=== PATIENT | male | born 1990 | race Caucasian/White ===

== ENCOUNTER 2019-01-23 16:52 | Emergency (ER) | payer OTHER, SELFPAY ==
--- NOTE | 2019-01-23 17:13 | EDPHYS ---
Physician Documentation [facility] Name: Humaira Johnson Age: 28 yrs Sex: Male : 1990 Arrival Date: 01/23/2019 Time: 16:55 Bed 19 Private MD: ED Physician Jakob Inman HPI: 01/23 17:10 This 28 yrs old Male presents to ER via Ambulatory with complaints of Facial kb Swelling. 17:11 The patient presents with pain, redness, swelling. The problem is located in the upper kb right first molar (#3) and upper right second molar (#2). Onset: The symptoms/episode began/occurred yesterday. Duration: The symptoms are continuous. Modifying factors: The symptoms are alleviated by nothing, the symptoms are aggravated by nothing. Associated signs and symptoms: Pertinent positives: pain, redness in area, swelling, facial. Severity of symptoms: At their worst the symptoms were moderate, in the emergency department the symptoms are unchanged. The patient has not experienced similar symptoms in the past. The patient has not recently seen a physician. Historical: - Allergies: 17:00 No Known Allergies; la1 - PMHx: 17:00 None; la1 - Immunization history:: Adult Immunizations up to date. - Social history:: Smoking status: Patient/guardian denies using tobacco. - Ebola Screening: : No symptoms or risks identified at this time. ROS: 17:09 Constitutional: Negative for fever, chills, and weight loss, Neck: Negative for injury, kb pain, and swelling, Cardiovascular: Negative for chest pain, palpitations, and edema, Respiratory: Negative for shortness of breath, cough, wheezing, and pleuritic chest pain, Abdomen/GI: Negative for abdominal pain, nausea, vomiting, diarrhea, and constipation, Back: Negative for injury and pain, MS/Extremity: Negative for injury and deformity, Skin: Negative for injury, rash, and discoloration, Neuro: Negative for headache, weakness, numbness, tingling, and seizure. 17:09 ENT: Positive for dental pain. Exam: 17:09 Constitutional: This is a well developed, well nourished patient who is awake, alert, kb and in no acute distress. Head/Face: Normocephalic, atraumatic. Neck: Trachea midline, no thyromegaly or masses palpated, and no cervical lymphadenopathy. Supple, full range of motion without nuchal rigidity, or vertebral point tenderness. No Meningismus. Chest/axilla: Normal chest wall appearance and motion. Nontender with no deformity. No lesions are appreciated. Cardiovascular: Regular rate and rhythm with a normal S1 and S2. No gallops, murmurs, or rubs. Normal PMI, no JVD. No pulse deficits. Respiratory: Lungs have equal breath sounds bilaterally, clear to auscultation and percussion. No rales, rhonchi or wheezes noted. No increased work of breathing, no retractions or nasal flaring. Abdomen/GI: Soft, non-tender, with normal bowel sounds. No distension or tympany. No guarding or rebound. No evidence of tenderness throughout. Skin: Warm, dry with normal turgor. Normal color with no rashes, no lesions, and no evidence of cellulitis. MS/ Extremity: Pulses equal, no cyanosis. Neurovascular intact. Full, normal range of motion. Neuro: Awake and alert, GCS 15, oriented to person, place, time, and situation. Cranial nerves II-XII grossly intact. Motor strength 5/5 in all extremities. Sensory grossly intact. Cerebellar exam normal. Normal gait. 17:09 ENT: Dental exam: gum swelling, that is moderate, specifically in the upper right second molar (#2) and upper right first molar (#3), pain. Vital Signs: 17:00 BP 118 / 94; Pulse 74; Resp 18; Temp 98.4; Pulse Ox 100% on R/A; Weight 83.91 kg; la1 Height 6 ft. 0 in. (182.88 cm); 17:00 Body Mass Index 25.09 (83.91 kg, 182.88 cm) la1 MDM: 17:02 Patient medically screened. kb 17:10 Data reviewed: vital signs, nurses notes. Data interpreted: Pulse oximetry: on room air kb is 100 %. Interpretation: normal. Counseling: I had a detailed discussion with the patient and/or guardian regarding: the historical points, exam findings, and any diagnostic results supporting the discharge/admit diagnosis, the need for outpatient follow up, a dentist, to return to the emergency department if symptoms worsen or persist or if there are any questions or concerns that arise at home. 17:13 ED course: Pt reports he was seen at the [facility] by a dentist and was told he kb needed a tooth pulled, but he didn't have the money to have it done. Given information about dental schools that may be able to help him.. Administered Medications: 17:29 Drug: Clindamycin 300 mg Route: PO; em 17:32 Follow up: Response: Medication administered at discharge. em Disposition: 01/24 12:59 Co-signature as Attending Physician, Jakob Inman MD I agree with the assessment and kdr plan of care. Disposition: 01/23/19 17:12 Discharged to Home. Impression: Periapical abscess without sinus. - Condition is Stable. - Discharge Instructions: Dental Pain, [id number], Dental Abscess, [id number]. - Prescriptions for Clindamycin HCl 300 mg Oral Capsule - take 1 capsule by ORAL route every 6 hours for 10 days; 40 capsule. - Medication Reconciliation Form, Thank You Letter, Antibiotic Education, Prescription Opioid Use form. - Follow up: Emergency Department; When: As needed; Reason: Worsening of condition. Follow up: Private Physician; When: 2 - 3 days; Reason: Recheck today's complaints, Continuance of care, Re-evaluation by your physician. Signatures: Stephanie Salgado, CHANGER FIXER-C CHANGER FIXER-Ckb Jakob Inman MD MD [facility] Aj Hall, HAT LACER HAT LACER Elpidio Jaramillo RN RN la1 Corrections: (The following items were deleted from the chart) 01/23 17:10 17:09 ENT: Dental exam: gum swelling, pain, kb kb 17:32 17:12 01/23/2019 17:12 Discharged to Home. Impression: Periapical abscess without em sinus. Condition is Stable. Forms are Medication Reconciliation Form, Thank You Letter, Antibiotic Education, Prescription Opioid Use. Follow up: Emergency Department; When: As needed; Reason: Worsening of condition. Follow up: Private Physician; When: 2 - 3 days; Reason: Recheck today's complaints, Continuance of care, Re-evaluation by your physician. kb
--- NOTE | 2019-01-23 17:13 | ER ---
Nurse's Notes [facility] Name: Humaira Johnson Age: 28 yrs Sex: Male : 1990 Arrival Date: 01/23/2019 Time: 16:55 Bed 19 Private MD: Diagnosis: Periapical abscess without sinus Presentation: 01/23 17:00 Presenting complaint: Patient states: I have had dental problems in the past and am la1 having facial swelling on the upper right. Transition of care: patient was not received from another setting of care. Onset of symptoms was January 23, 2019. Risk Assessment: Do you want to hurt yourself or someone else? Patient reports no desire to harm self or others. Initial Sepsis Screen: Does the patient meet any 2 criteria? No. Patient's initial sepsis screen is negative. Does the patient have a suspected source of infection? No. Patient's initial sepsis screen is negative. Care prior to arrival: None. 17:00 Method Of Arrival: Ambulatory la1 17:00 Acuity: [place] 4 la1 Historical: - Allergies: 17:00 No Known Allergies; la1 - PMHx: 17:00 None; la1 - Immunization history:: Adult Immunizations up to date. - Social history:: Smoking status: Patient/guardian denies using tobacco. - Ebola Screening: : No symptoms or risks identified at this time. Screenin:30 Abuse screen: Denies threats or abuse. Nutritional screening: No deficits noted. em Tuberculosis screening: No symptoms or risk factors identified. Fall Risk None identified. Assessment: 17:31 General: Appears in no apparent distress. comfortable, Behavior is calm, cooperative, em Denies fever. Pain: Complains of pain in upper right first molar (#3) and upper right second molar (#2) Pain currently is 7 out of 10 on a pain scale. Neuro: Level of Consciousness is awake, alert, obeys commands, Oriented to person, place, time, situation, Appropriate for age. Cardiovascular: Capillary refill < 3 seconds Patient's skin is warm and dry. Respiratory: Airway is patent Respiratory effort is even, unlabored, Respiratory pattern is regular, symmetrical. EENT: Oral mucosa is moist. Dental caries noted in upper right first molar (#3) and upper right second molar (#2) Throat is clear is pink. Derm: Skin is intact, is healthy with good turgor, Skin is pink, warm \T\ dry. Musculoskeletal: Capillary refill < 3 seconds, Range of motion: intact in all extremities. Vital Signs: 17:00 BP 118 / 94; Pulse 74; Resp 18; Temp 98.4; Pulse Ox 100% on R/A; Weight 83.91 kg; la1 Height 6 ft. 0 in. (182.88 cm); 17:00 Body Mass Index 25.09 (83.91 kg, 182.88 cm) la1 ED Course: 16:55 Patient arrived in ED. mr 16:59 Arm band placed on right wrist. la1 17:01 Triage completed. la1 17:01 Stephanie Salgado FNP-C [facility]. kb 17:01 Jakob Inman MD is Attending Physician. kb 17:06 Aj Hall LVN is Primary Nurse. em 17:30 Patient has correct armband on for positive identification. Bed in low position. Call em light in reach. Adult w/ patient. 17:30 No provider procedures requiring assistance completed. Patient did not have IV access em during this emergency room visit. Administered Medications: 17:29 Drug: Clindamycin 300 mg Route: PO; em 17:32 Follow up: Response: Medication administered at discharge. em Outcome: 17:12 Discharge ordered by . kb 17:30 Discharged to home ambulatory, with family. em 17:30 Condition: good 17:30 Discharge instructions given to patient, family, Instructed on discharge instructions, follow up and referral plans. medication usage, Demonstrated understanding of instructions, follow-up care, medications, Prescriptions given X 1. 17:32 Patient left the ED. em Signatures: Stephanie Salgado FNP-C FNP-Fredo Cande VasquezAj, AQUATIC DIRECTOR AQUATIC DIRECTOR em Elpidio Steinberg, RN RN la1
[2019-01-23] MEDS ORDERED: CLINDAMYCIN HCL 150 MG CAP ONE (17:18)
[2019-01-23 17:37] VITALS: BP 118/94; TEMP 98.4; O2SAT 100
== END 2019-01-23 17:32 | disposition home or self-care (01) ==
LOC: ER 16:52
DX: K04.7 Periapical abscess without sinus (principal)
CPT/HCPCS: 99283